=== PATIENT | female | born 1935 | race Two or more races ===

== ENCOUNTER 2017-07-13 13:26 | Outpatient (CLI) | payer OTHER | END 2017-07-13 13:31 | disposition home or self-care (01) | LOC: SONOGRAMA 13:26 | DX: E03.8 Other specified hypothyroidism (principal); E04.1 Nontoxic single thyroid nodule ==

== ENCOUNTER → 2017-07-31 | Outpatient (CLI) | payer OTHER | END | disposition home or self-care (01) | LOC: NUCLEAR 07-23 14:00 | DX: M81.0 Age-related osteoporosis without current pathological fracture (principal) ==

== ENCOUNTER 2017-10-07 15:22 | Outpatient (CLI) | payer OTHER | END 2017-10-07 15:43 | disposition home or self-care (01) | LOC: RAD 15:22 | DX: M54.2 Cervicalgia (principal) ==

== ENCOUNTER 2018-06-17 14:50 | Outpatient (CLI) | payer OTHER | END 2018-06-17 14:58 | disposition home or self-care (01) | LOC: RAD 14:50 | DX: M54.5 Low back pain (principal); M54.6 Pain in thoracic spine ==

== ENCOUNTER 2018-09-15 10:30 | Outpatient (CLI) | payer OTHER | END 2018-09-15 10:33 | disposition home or self-care (01) | LOC: TOM 10:30 | DX: M54.5 Low back pain (principal); M54.16 Radiculopathy, lumbar region ==

== ENCOUNTER 2020-01-24 11:34 | Outpatient (CLI) | payer OTHER | END 2020-01-24 11:40 | disposition home or self-care (01) | LOC: RAD 11:34 | PROVIDERS: ATTEND Physical Medicine & Rehabilitation | DX: M54.2 Cervicalgia (principal); M54.6 Pain in thoracic spine ==

== ENCOUNTER 2020-01-30 09:28 | Outpatient (CLI) | payer OTHER | END 2020-01-30 09:36 | disposition home or self-care (01) | LOC: LAB 09:28 | PROVIDERS: ATTEND Internal Medicine | DX: E61.8 Deficiency of other specified nutrient elements (principal); E55.9 Vitamin D deficiency, unspecified; I11.9 Hypertensive heart disease without heart failure; E78.00 Pure hypercholesterolemia, unspecified ==

== ENCOUNTER 2020-02-03 11:31 | Outpatient (CLI) | payer OTHER | END 2020-02-03 11:39 | disposition home or self-care (01) | LOC: SONOGRAMA 11:31 | PROVIDERS: ATTEND Internal Medicine | DX: R31.29 Other microscopic hematuria (principal) ==

== ENCOUNTER 2020-02-09 12:12 | Outpatient (CLI) | payer OTHER | END 2020-02-09 12:19 | disposition home or self-care (01) | LOC: RAD 12:12 | PROVIDERS: ATTEND Physical Medicine & Rehabilitation | DX: M20.12 Hallux valgus (acquired), left foot (principal); S93.692A Other sprain of left foot, initial encounter; Z91.81 History of falling; S96.912A Strain of unspecified muscle and tendon at ankle and foot level, left foot, initial encounter; S86.012A Strain of left Achilles tendon, initial encounter ==

== ENCOUNTER 2020-03-17 09:54 | Inpatient (IN) | payer OTHER ==
[~2020-03-17] VITALS: Ht 167.6 cm; Wt 48.1 kg
[2020-03-17] MEDS ORDERED: XARELTO15 MG (10:05)
[2020-03-17] MEDS ORDERED: CARVEDILOL ER40 MG (10:05)
[2020-03-17] MEDS ORDERED: COZAAR25 MG (10:06)
[2020-03-17] MEDS ORDERED: AMIODARONE HCL100 MG (10:06)
== END 2020-03-27 17:36 | disposition home health service (06) | DRG 478 ==
LOC: ER 09:54 → SURG 13:38 → MEDI 13:38 → SEC-K 16:47 → MEDI 17:47
PROVIDERS: ADMIT Internal Medicine; ATTEND Internal Medicine
PROC: 0QBM0ZX Excision of Left Tarsal, Open Approach, Diagnostic (ICD-10-PCS; principal; 2020-03-19)
PROC: 0LBP0ZZ Excision of Left Lower Leg Tendon, Open Approach (ICD-10-PCS; 2020-03-19)
DX: M86.172 Other acute osteomyelitis, left ankle and foot (principal); L97.528 Non-pressure chronic ulcer of other part of left foot with other specified severity; I48.20 Chronic atrial fibrillation, unspecified; N17.8 Other acute kidney failure; N39.0 Urinary tract infection, site not specified; Z79.01 Long term (current) use of anticoagulants; N18.9 Chronic kidney disease, unspecified; Z20.828 Contact with and (suspected) exposure to other viral communicable diseases; B96.29 Other Escherichia coli [E. coli] as the cause of diseases classified elsewhere; L98.0 Pyogenic granuloma